=== PATIENT | male | born 1970 | race Caucasian/White ===

== ENCOUNTER 2017-06-27 09:58 | Emergency (ER) | payer SELFPAY ==
--- NOTE | 2017-06-27 10:31 | EDM.PDOC ---
ED HPI GENERAL MEDICAL PROBLEM - General Chief Complaint: Neuro Symptoms/Deficits Stated Complaint: NUMB FEET Time Seen by Provider: 06/27/17 10:28 Source of Information: Reports: Patient History Limitations: Reports: No Limitations - History of Present Illness INITIAL COMMENTS - FREE TEXT/NARRATIVE: HISTORY AND PHYSICAL: []47-year-old male from [place] presents with numbness to the soles of his feet and extends third up his calf History of Present Illness: []Patient relates to having awakened about 1 month ago with numbness to his feet. States that his improved over time, but continues to have numbness to the soles of his feet. Patient does relate relate having his hands with numbness occasionally while sleeping. Patient underwent complete physical in January of this year with no concerns. Patient denies any change in bowel habits no difficulty with urination or inability to have bowel movement. Patient denies any chronic disease status to his diabetes. Denies any back pain Review of Systems: As per history of present illness and below otherwise all systems reviewed and negative. Past medical history: As per history of present illness and as reviewed below otherwise noncontributory. Surgical history: As per history of present illness and as reviewed below otherwise noncontributory. Social history: No reported history of drug or alcohol abuse. Family history: As per history of present illness and as reviewed below otherwise noncontributory. Physical exam: Alert and oriented gentleman non toxic in appearance. Answers questions in full sentences, without any shortness of breath. HEENT: Atraumatic, normocehpalic, pupils reactive, negative for conjunctival pallor or scleral icterus, mucous membranes moist, throat clear, neck supple, nontender, trachea midline. Lungs: Clear to auscultation, breath sounds equal bilaterally, chest non tender. Heart: S1S2, regular, negative for clicks, rubs, or JVD. Abdomen: Soft, nondistended, nontender. Negative for masses or hepatossplenmegaly. Negative for costovertebral tenderness. Pelvis: Stable nontender. Genitourinary: Deferred. Rectal: Deferred Extremities: Atraumatic, negative for cords or calf pain. Dorsalis tibialis reflex brisk 2+. Pulses are palpable to bilateral feet. Knee reflexes 2+ and brisk. Capillary r refill less than 2 seconds. Neurovascular unremarkable. Neuro: Awake, alert, oriented. Cranial nerves II through XII unremarkable. Cerebellum unremarkable. Motor and sensory unremarkable throughout. Exam nonfocal. Diagnostics: [CBC CMP venous Doppler] Therapeutics: [] Impression: [Idiopathic peripheral neuropathy] Plan: [At this time have you take Tylenol [id number] or ibuprofen for discomfort ] Follow-up with your PCP May need referral to neurology Definitive disposition and diagnosis as appropriate pending reevaluation and review of above. Onset: Gradual Duration: Week(s): (4) Location: Reports: Lower Extremity, Left, Lower Extremity, Right Severity: Mild Improves with: Reports: Other (slowly improving over time) - Related Data Allergies Allergy/AdvReac Type Severity Reaction Status Date / Time No Known Allergies Allergy Verified 06/27/17 10:15 Home Meds: Home Meds Cetirizine HCl/Pseudoephedrine [ZyrTEC-D] 1 tab PO DAILY 06/27/17 [History] Past Medical History - Past Health History Medical/Surgical History: Denies Medical/Surgical History Social & Family History - Family History Family Medical History: Noncontributory - Tobacco Use Smoking Status *Q: Never Smoker - Caffeine Use Caffeine Use: Reports: Energy Drinks Other Caffeine Use: occasion 1x month - Recreational Drug Use Recreational Drug Use: No ED ROS GENERAL - Review of Systems Review Of Systems: ROS reveals no pertinent complaints other than HPI. ED EXAM, NEURO - Physical Exam Exam: See Below (See dictation) Course - Vital Signs Last Recorded V/S: Last Vital Signs Temp 36.1 C 06/27/17 10:12 Pulse 114 H 06/27/17 10:12 Resp 18 06/27/17 10:12 BP 144/85 H 06/27/17 10:12 Pulse Ox 98 06/27/17 10:12 - Orders/Labs/Meds Labs: Laboratory Tests 06/27/17 06/27/17 Range/Units 10:51 10:51 WBC 6.95 (4.0-11.0) K/uL RBC 5.05 (4.50-5.90) M/uL Hgb 16.0 (13.0-17.0) g/dL Hct 45.8 (38.0-50.0) % MCV 90.7 (80.0-98.0) fL MCH 31.7 (27.0-32.0) pg MCHC 34.9 (31.0-37.0) g/dL RDW Std Deviation 42.0 (28.0-62.0) fl RDW Coeff of Katharina 13 (11.0-15.0) % Plt Count 236 (150-400) K/uL MPV 8.90 (7.40-12.00) fL Neut % (Auto) 56.1 (48.0-80.0) % Lymph % (Auto) 33.5 (16.0-40.0) % Stewart % (Auto) 7.2 (0.0-15.0) % Eos % (Auto) 2.6 (0.0-7.0) % Baso % (Auto) 0.6 (0.0-1.5) % Neut # (Auto) 3.9 (1.4-5.7) K/uL Lymph # (Auto) 2.3 (0.6-2.4) K/uL Stewart # (Auto) 0.5 (0.0-0.8) K/uL Eos # (Auto) 0.2 (0.0-0.7) K/uL Baso # (Auto) 0.0 (0.0-0.1) K/uL Nucleated RBC % 0.0 /100WBC Nucleated RBCs # 0 K/uL Sodium 140 (136-146) mmol/L Potassium 4.3 (3.5-5.1) mmol/L Chloride 106 (98-110) mmol/L Carbon Dioxide 26 (21-31) mmol/L BUN 15 (6.0-23.0) mg/dL Creatinine 0.9 (0.6-1.5) mg/dL Est Cr Clr Drug Dosing 125.13 mL/min Estimated GFR (MDRD) > 60.0 ml/min Glucose 119 H (60-110) mg/dL Calcium 9.4 (8.8-10.8) mg/dL Total Bilirubin 0.7 (0.1-1.5) mg/dL AST 41 H (5-40) IU/L ALT 57 H (8-54) IU/L Alkaline Phosphatase 142 (40-150) Total Protein 7.4 (6.0-8.0) g/dL Albumin 4.3 (3.5-5.0) g/dL Globulin 3.1 (2.0-3.5) g/dL Albumin/Globulin Ratio 1.4 (1.3-2.8) Departure - Departure Time of Disposition: 11:59 Disposition: Home, Self-Care 01 Condition: Good Clinical Impression: Peripheral neuropathy Qualifiers: Peripheral neuropathy type: polyneuropathy, unspecified Qualified Code(s): G62.9 - Polyneuropathy, unspecified - Discharge Information Referrals: PCP,None [Primary Care Provider] - Forms: ED Department Discharge Additional Instructions: The following information is given to patients seen in the emergency department who are being discharged to home. This information is to outline your options for follow-up care. We provide all patients seen in our emergency department with a follow-up referral. The need for follow-up, as well as the timing and circumstances, are variable depending upon the specifics of your emergency department visit. If you don't have a primary care physician on staff, we will provide you with a referral. We always advise you to contact your personal physician following an emergency department visit to inform them of the circumstance of the visit and for follow-up with them and/or the need for any referrals to a consulting specialist. The emergency department will also refer you to a specialist when appropriate. This referral assures that you have the opportunity for followup care with a specialist. All of these measure are taken in an effort to provide you with optimal care, which includes your followup. Under all circumstances we always encourage you to contact your private physician who remains a resource for coordinating your care. When calling for followup care, please make the office aware that this follow-up is from your recent emergency room visit. If for any reason you are refused follow-up, please contact the [facility] emergency department at and asked to speak to the emergency department charge nurse. PETROS index was in normal range Lab work was normal Follow-up with your PCP May need neurology referral if not improving
[2017-06-27 11:19] LABS: CHLORIDE,CL 106 mmol/L (98-110); SODIUM,NA 140 mmol/L (136-146)
--- NOTE | 2017-06-27 11:52 | US ---
EXAMINATION: PETROS HISTORY: Numbness COMPARISON: None TECHNIQUE: Pressures obtained in the upper and lower extremities bilaterally. FINDINGS/IMPRESSION: Both the left and right PETROS is are normal and greater than 1.
[2017-06-27 14:57] VITALS: BP 125/84
== END 2017-06-27 12:06 | disposition home or self-care (01) ==
LOC: MW.ED 09:58
DX: G60.9 Hereditary and idiopathic neuropathy, unspecified (principal); G62.9 Polyneuropathy, unspecified
CPT/HCPCS: 36415; 80053; 85025; 93922; 93922-26; 99283; 99284-25